=== PATIENT | male | born 1975 | race Caucasian/White ===

== ENCOUNTER 2022-10-15 11:01 | Emergency (ER) | payer OTHER ==
[~2022-10-15] VITALS: Ht 175.3 cm; Wt 72.6 kg
[2022-10-15 11:13] VITALS: BP_SYST 120; PULSE 91; RESP 18; TEMP 98.3; O2SAT 99
[2022-10-15] MEDS ORDERED: NAPR-690 PO (12:44)
[2022-10-15 12:51] VITALS: BP_SYST 117; PULSE 88; RESP 18; TEMP 98.3; O2SAT 99
== END 2022-10-15 12:50 | disposition home or self-care (01) ==
LOC: SED 11:01
DX: S92.321A Displaced fracture of second metatarsal bone, right foot, initial encounter for closed fracture (principal); F17.200 Nicotine dependence, unspecified, uncomplicated; Z79.899 Other long term (current) drug therapy; W18.49XA Other slipping, tripping and stumbling without falling, initial encounter; Y93.89 Activity, other specified; Y92.89 Other specified places as the place of occurrence of the external cause; Y99.9 Unspecified external cause status
CPT/HCPCS: 99283